=== PATIENT | male | born 1955 | race Caucasian/White ===

== ENCOUNTER → 2017-07-31 | Outpatient (CLI) | payer BC ==
[~2017-07-31] MED LIST: ASPEC325 PO; CLB200 PO; LISI20TA55 PO; LRT5 PO; PARO1TAB27 PO
[2017-07-31 17:16] LABS: ALT/SGPT 29 U/L (12-78); BLOOD UREA NITROGEN 17 mg/dl (7-18); BUN/CREATININE RATIO 17.5 (10-20); CALCIUM 9.3 mg/dl (8.5-10.1); CARBON DIOXIDE 29 mmol/L (21-32); CHLORIDE 100 mmol/L (98-107); CHOLESTEROL 143 mg/dl (0-200); CREATININE 0.96 mg/dl (0.60-1.40); GLUCOSE 94 mg/dl (70-99); POTASSIUM 3.7 mmol/L (3.5-5.1); SODIUM 135 mmol/L (136-145)
[2017-07-31 17:21] LABS: ALB/GLOB RATIO 1.2 (0.9-2); ALKALINE PHOSPHATASE 78 U/L (45-117); AST/SGOT 29 U/L (15-37); CHOLESTEROL/HDL RATIO 2.3; HDL CHOLESTEROL 63 mg/dl; LDL CHOLESTEROL CALCULATED 68 mg/dl; TRIGLYCERIDES 59 mg/dl (0-150); VERY LOW DENSITY LIPOPROT CALC 12 mg/dl
== END | disposition home or self-care (01) ==
LOC: C.LABPBG 12:27
PROVIDERS: ATTEND Internal Medicine
DX: Z00.00 Encounter for general adult medical examination without abnormal findings (principal)

== ENCOUNTER → 2017-10-09 | Outpatient (CLI) | payer BC | END | disposition home or self-care (01) | LOC: C.CPL 10:51 | DX: M20.21 Hallux rigidus, right foot (principal); R00.1 Bradycardia, unspecified ==

== ENCOUNTER → 2018-04-11 | Outpatient (CLI) | payer OTHER ==
--- NOTE | 2018-04-11 09:36 | DIAGNOSTIC IMAGING REPORT ---
CT LUNG SCREENING, LOW DOSE WITH COMPUTER-AIDED DETECTION (CAD) CLINICAL HISTORY: 63 years-old Male presenting with CURRENT DAILY SMOKER, 60+ pack-year history, asymptomatic, no history of cancer. CT DOSE (mGy.cm): The estimated cumulative dose is 105.40 mGy.cm. TECHNIQUE: Multidetector CT imaging of the chest was performed without the use of intravenous contrast. IV contrast: None. A dose lowering technique was used consistent with the principles of ALARA (as low as reasonably achievable). Additional postprocessing was performed on a separate [employer] workstation by the radiologist for computer-aided detection and 3-D volumetric segmentation of pulmonary nodules. COMPARISON: Chest x-ray from 10/28/2012. FINDINGS: Protection Specialist topogram: Unremarkable. On soft tissue windows, normal thyroid and thoracic inlet. No axillary, supraclavicular, or mediastinal lymphadenopathy. Evaluation of the shanelle limited without intravenous contrast. Normal aorta. Normal heart size. Mild three-vessel coronary artery calcification. No pericardial or pleural effusion. Upper abdomen normal. On lung windows, diffuse centrilobular groundglass nodularity within upper lobe predominance but affecting all 5 lobes. Solid 3 mm nodule in the anterior segment of the right upper lobe (series 4 image 165). Solid 4 mm triangular subpleural nodule in the lateral basal right lower lobe (series 4 image 264). Solid 7 mm triangular subpleural nodule in the right lower lobe (series 4 image 179). Several additional subpleural nodules noted in the bilateral lower lobes. Solid 4 mm nodule in the superior segment of the lingula (series 4 image 138). Solid 3 mm nodule in the left lower lobe (series 4 image 249). Many additional punctate solid nodules are noted superimposed on centrilobular groundglass nodularity. Mild bronchial wall thickening. Central airways patent. On bone windows, degenerative changes of the spine. CAD FINDINGS: Nodule 1 Category: 2 Nodule 1 Status: Baseline Nodule 1 Description: Solid Nodule 1 Lesion ID: 1 Nodule 1 Slice Number: 99 Nodule 1 Volume (mm3): 99 Nodule 1 Major [place] mm: 7.3 Nodule 1 Minor [place] mm: 5.2 Overall Lung RADS Category: 2 Lung RADS Management Recommendation: Continue annual lung cancer screening. Lung RADS Follow Up Date: 2019-04-11 Lung RADS Nodule ID: 1 IMPRESSION: 1. Continued annual lung cancer screening. 2. Diffuse centrilobular groundglass nodularity likely indicates respiratory bronchiolitis as a manifestation of smoking related lung injury. Given the diffuse multifocal punctate solid nodules, there may also be superimposed pulmonary Langerhans cell histiocytosis as another manifestation of smoking related lung injury. Electronically signed by: Bravo Fuentes M.D. 04/11/2018 9:35 AM Dictated Date/Time: 04/11/2018 9:21 AM
== END | disposition home or self-care (01) ==
LOC: C.CTS 09:00
PROVIDERS: ATTEND Internal Medicine
DX: F17.210 Nicotine dependence, cigarettes, uncomplicated (principal); R91.8 Other nonspecific abnormal finding of lung field

== ENCOUNTER 2024-05-04 23:05 | Observation (INO) ==
[2024-05-04 23:48] LABS: Basophils # (auto) 0.02 K/uL (0.00-0.20); Basophils % (auto) 0.2 %; Eosinophils # (auto) 0.01 K/uL (0.00-0.50); Eosinophils % (auto) 0.1 %; Hemoglobin 15.2 g/dl (14.0-18.0); Immature Granulocytes # (auto) 0.02 K/uL (0.01-0.20); Immature Granulocytes % (auto) 0.2 %; Lymphocytes # (auto) 1.36 K/uL (1.20-3.40); Lymphocytes % (auto) 14.7 %; Mean Corpuscular Hemoglobin 31.8 pg (25.0-34.0); Mean Corpuscular Hgb Conc 34.5 g/dL (32.0-36.0); Mean Corpuscular Volume 92.1 fL (80.0-100.0); Mean Platelet Volume 9.8 fL (9.4-12.4); Neutrophils # (auto) 6.65 K/uL (1.40-6.50); Neutrophils % (auto) 71.8 %; Platelet Count 311 K/uL (130-400); RDW Coefficient of Variation 13.2 % (11.5-14.5); RDW Standard Deviation 45.4 fL (36.4-46.3); Red Blood Count 4.78 M/uL (4.70-6.10); White Blood Count 9.26 K/ul (4.8-10.8)
--- NOTE | 2024-05-04 23:57 | Emergency Department Note ---
Impression & Plan Acute hypoxic respiratory failure, COPD (chronic obstructive pulmonary disease) ED Provider Note NAME: KARLOS ZHANG AGE: 69 SEX: M : 1955 ARRIVES VIA: Ambulance INFORMANT: Patient ED PROVIDER(S): Gustavo Chung DO CHIEF COMPLAINT: Shortness of breath HPI: Patient is a 69-year-old male with a past medical history anxiety, BPH, COPD, and hypertension for shortness of breath which has been going on since Saturday. He admits to a cough, congestion, runny nose. Denies any headache or change in vision. No chest pain but shortness of breath significant worse with movement. Brought in by EMS. Additional history obtained from present at bedside who notes that this has been getting worse. He notes he is still smoking. He was given neb treatments but no steroids. No treatments did help out. He was 87% on room air. ADDITIONAL HISTORY OBTAINED: Per HPI Chronic Medical/Social Conditions Affecting Care: Per HPI PAST MEDICAL HISTORY:See Below PAST SURGICAL HISTORY:See Below FAMILY HISTORY:See Below SOCIAL HISTORY:See Below HOME MEDICATIONS:See Below ALLERGIES:See Below VITALS:See Below PHYSICAL EXAMINATION: GENERAL: Sitting up in chair, slightly ill-appearing, disheveled EYE EXAM: normal conjunctiva. OROPHARYNX: no exudate, no erythema, lips, buccal mucosa, and tongue normal and mucous membranes are moist NECK: supple, no nuchal rigidity, no adenopathy, non-tender LUNGS: Diffuse wheezing bilaterally. Normal chest wall mechanics HEART: no murmurs, S1 normal and S2 normal ABDOMEN: abdomen soft, non-tender, normo-active bowel sounds, no masses, no rebound or guarding. UPPER EXTREMITIES: upper extremities are grossly normal. LOWER EXTREMITIES: No pitting edema. Calves are equal bilateral NEURO EXAM: Normal sensorium, cranial nerves II-XII grossly intact, normal speech, no gross weakness of arms, no gross weakness of legs. MEDICAL DECISION MAKING: Patient is a 69-year-old male who is a smoker with past medical history of hyperlipidemia, anxiety who presents ER for shortness of breath brought in by EMS. He was found to be hypoxic. Placed on 2 L nasal cannula. Given our neb treatment. He was also given DuoNebs as well as steroids. Labs show no significant leukocytosis or anemia. INR unremarkable. BMP with mild hypokalemia 3.4. LFTs bilirubin was unremarkable. Troponin was negative. Viral panel was negative. Chest x-ray with subtle opacity over the right lower heart border. Patient was given IV antibiotics. Updated bedside and discussed with the hospitalist for further evaluation management treatment. Consults/Care Managements Discussions: Per [facility] Triage Nursing notes reviewed. Limited review of prior medical records performed Vital Signs: reviewed and remarkable for hypertension with tachycardic Differential diagnosis: Differential diagnoses includes but is not limited to pneumonia, bronchitis, COPD/Asthma exacerbation, pneumothorax, pulmonary embolism, congestive heart failure, acute coronary syndrome ER treatment provided: See below Diagnostics interpreted by me include EKG and cardiac monitoring as listed below: -Cardiac Monitoring: An order was placed for continuous cardiac monitoring. The monitor shows a rate of 95 with sinus rhythm. -ECG: Sinus tachycardia rate of 91 Normal axis No PVCs QTc 432 -Laboratory studies:Interpreted by me as stated above in MDM and shown below. Imaging studies: Xrays: As interpreted by me: Portable AP upright 1 view of the chest shows subtle infiltrate in the right cardiac border CTs show: none Procedures:none Critical Care: I have personally spent 35 minutes of critical care time in the direct management of this patient. This includes bedside care, interpretation of diagnostic studies, and testing, discussion with consultants, patient, and family members, and other required patient management activities. This 35 minutes is in excess of all separately billable procedures. Past Med/Surg History Problem List (Updated 05/05/24 @ 04:03 by Gustavo Chung DO) COPD (chronic obstructive pulmonary disease) (Acute) Acute hypoxic respiratory failure (Acute) Anticoagulation management encounter Hyperlipidemia Elevated lipoprotein(a) Hyperglycemia Hematuria External hemorrhoids Anxiety Personal history of nicotine dependence Encounter for screening for lung cancer Gets annual screening. Last done 03/2019. 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 Hx of sleep apnea resolved with surgery Hx of Goldman's palsy unsure of cause, resolved History of anxiety Hx of bronchitis Osteoarthritis History of hepatitis (~1977) inpatient for 22 days, treated, unsure of type History of depression History of acute sinusitis Surgical History Hx of right inguinal hernia repair (~1989) History of colonoscopy History of total hip replacement resurfaced, rt H/O sinus surgery (03/11/09) with Uvalectomy H/O inguinal hernia repair (~2022) lt H/O knee surgery x3 lt- x 1 rt- x 2, right knee replaced Family History Mother History of permanent cardiac pacemaker placement Hypertension Pacemaker Thyroid cancer Father Thalassemia Denies family history of Ovarian cancer Prostate cancer Myocardial infarction Breast cancer Colorectal cancer Social History Smoking Status: Current every day smoker Tobacco Type: Cigarettes packs per day: 2; Cigarettes Per Day: 1 ppd (Advised); Second Hand Exposure: No; Do You Dip or Chew Tobacco: No; Hx Alcohol Use: Yes Alcohol type: beer Alcohol Intake Frequency Comment: averages 3-4 beer daily, weekend use is significantly more Hx Substance Use: No Preferred Language: Turkish Communication Ability: Effective Visual Impairment: No Limitations Hearing Ability: Normal Gang Supervisor Required: No Beliefs That Will Affect Care: None marital status: Current Living Situation: Spouse current occupational status: employed current occupation: [employer] How many Children do You have: 1 Feels Safe at Home: Yes Childhood Exposure to Second-Hand Smoke: No Diet: regular Diet Comment: regular caffeine: Yes during the past year weight has: remained stable Physical Activity Frequency: Daily Physical Activity Frequency Comment: regularly Seatbelt Use: always Sunscreen Use: Yes Assistive Devices: None Allergies Allergies Allergy/AdvReac Type Severity Reaction Status Date / Time No Known Drug Allergies Allergy Unknown Verified 05/05/24 01:21 Home Meds Home Medications Medication Instructions Recorded Confirmed cholecalciferol (vitamin D3) 25 25 mcg PO QAM 05/09/21 05/05/24 mcg (1,000 unit) capsule hydrochlorothiazide 12.5 mg tablet 12.5 mg PO QAM 02/24/24 05/05/24 lisinopril 40 mg tablet 40 mg PO QAM 02/24/24 05/05/24 pantoprazole 40 mg tablet,delayed 40 mg PO QAM 02/24/24 05/05/24 release paroxetine HCl 40 mg tablet 40 mg PO QAM 02/24/24 05/05/24 rosuvastatin 20 mg tablet 20 mg PO QAM 02/24/24 05/05/24 Previous Rx's Medication Instructions Recorded inhalational spacing device #1 ea 01/08/22 (Aerochamber Plus Z Stat spacer) sildenafil 50 mg tablet 50 mg PO DAILY PRN sexual activity 07/22/23 #30 tabs albuterol sulfate 90 mcg/actuation 1 puff inhalation QID PRN 01/20/24 aerosol inhaler Shortness Of Breath Or Wheezing #8.5 grams amlodipine 5 mg tablet 5 mg PO HS #90 tabs 01/20/24 budesonide-formoterol HFA 80 1 inh inhalation HS #10.2 grams 01/20/24 mcg-4.5 mcg/actuation aerosol inhaler (Symbicort) aspirin 81 mg tablet,delayed 81 mg PO DAILY #30 tabs 02/25/24 release Results & Data (ED) Vital Signs Vital Signs - 24 hr 05/04/24 23:08 05/04/24 23:11 05/04/24 23:11 Temperature 36.8 C Temperature Source Temporal Artery Scan Pulse Rate 96 H Pulse Rate [Left Finger] Respiratory Rate 28 H Respiratory Effort / Characteristics Non-Labored Spontaneous Non-Labored Spontaneous Respiratory Depth Normal Deep Respiratory Pattern Tachypnea Regular Tachypnea Blood Pressure 163/90 H Blood Pressure Mean 114 Blood Pressure Position Sitting Pulse Oximetry 96 96 Oxygen Delivery Method Nasal Cannula Nasal Cannula Nasal Cannula Oxygen Flow Rate 2 2 2 Sepsis Recent Fever Within 48 Hours No Sepsis New/Unexplained Change in Mental Status No Sepsis Action Taken by Nursing No Action Required 05/05/24 00:13 05/05/24 01:57 Temperature Temperature Source Pulse Rate 92 H Pulse Rate [Left Finger] 92 H Respiratory Rate 27 H Respiratory Effort / Characteristics Spontaneous Respiratory Depth Respiratory Pattern Blood Pressure Blood Pressure Mean Blood Pressure Position Pulse Oximetry 93 Oxygen Delivery Method Nasal Cannula Oxygen Flow Rate 4 Sepsis Recent Fever Within 48 Hours Sepsis New/Unexplained Change in Mental Status Sepsis Action Taken by Nursing Laboratory Data 05/04/24 23:25 06/10/24 23:25 Lab Results 05/04/24 Range/Units 23:25 WBC 9.26 (4.8-10.8) K/ul RBC 4.78 (4.70-6.10) M/uL Hgb 15.2 (14.0-18.0) g/dl Hct 44.0 (42.0-52.0) % MCV 92.1 (80.0-100.0) fL MCH 31.8 (25.0-34.0) pg MCHC 34.5 (32.0-36.0) g/dL RDW Std Deviation 45.4 (36.4-46.3) fL RDW Coeff of [place] 13.2 (11.5-14.5) % Plt Count 311 (130-400) K/uL MPV 9.8 (9.4-12.4) fL Immature Gran % (Auto) 0.2 % Neut % (Auto) 71.8 % Lymph % (Auto) 14.7 % [place] % (Auto) 13.0 % Eos % (Auto) 0.1 % Baso % (Auto) 0.2 % Neut # (Auto) 6.65 H (1.40-6.50) K/uL Lymph # (Auto) 1.36 (1.20-3.40) K/uL [place] # (Auto) 1.20 H (0.11-0.59) K/uL Eos # (Auto) 0.01 (0.00-0.50) K/uL Baso # (Auto) 0.02 (0.00-0.20) K/uL Immature Gran # (Auto) 0.02 (0.01-0.20) K/uL PT 10.5 (9.0-12.0) Seconds INR 1.0 (0.9-1.1) APTT 28 (21-31) Seconds PTT Ratio 1.0 Sodium 136 (136-145) mmol/L Potassium 3.4 L (3.5-5.1) mmol/L Chloride 98 (98-107) mmol/L Carbon Dioxide 27 (21-32) mmol/L Anion Gap 11 (3-11) BUN 11 (6-23) mg/dl Creatinine 0.88 (0.6-1.4) mg/dl Est Cr Clr Drug Dosing Not Reportable Est GFR ( Amer) 101.6 ml/min Est GFR (Non-Af Amer) 87.6 ml/min BUN/Creatinine Ratio 12.5 (10-20) Glucose 109 H (70-99(Fasting)) mg/dl Calcium 10.1 (8.6-10.3) mg/dl Magnesium 1.7 (1.7-2.4) mg/dl Total Bilirubin 0.5 (0.2-1.0) mg/dl AST 31 (13-39) U/L ALT 24 (7-52) U/L Alkaline Phosphatase 81 (34-104) U/L Troponin I High Sens 6.7 (0-20) pg/ml Total Protein 7.5 (6.0-8.3) gm/dl Albumin 4.6 (3.4-5.0) gm/dl Globulin 2.9 (2.5-4.0) gm/dl Albumin/Globulin Ratio 1.6 (0.9-2) Adenovirus (PCR) Not Detected (NotDetected) B. pertussis DNA (PCR) Not Detected (NotDetected) B.parapertussis DNA PCR Not Detected (NotDetected) C. pneumoniae DNA (PCR) Not Detected (NotDetected) Coronavirus OC43 (PCR) Not Detected (NotDetected) Coronavirus HKU1 (PCR) Not Detected (NotDetected) Coronavirus 229E (PCR) Not Detected (NotDetected) SARS-CoV-2 (PCR) Not Detected (NotDetected) Coronavirus NL63 (PCR) Not Detected (NotDetected) Human Metapneumovir PCR Not Detected (NotDetected) Influenza Type A (PCR) Not Detected (NotDetected) Influenza Type B (PCR) Not Detected (NotDetected) M. pneumoniae (PCR) Not Detected (NotDetected) Parainfluenza 1 (PCR) Not Detected (NotDetected) Parainfluenza 2 (PCR) Not Detected (NotDetected) Parainfluenza 3 (PCR) Not Detected (NotDetected) Parainfluenza 4 (PCR) Not Detected (NotDetected) RSV (PCR) Not Detected (NotDetected) Entero/Rhino (PCR) Not Detected (NotDetected) Administered Medications Discontinued Medications Albuterol (Albut/Ipratrop 3mg/0.5mg Neb 3 Ml Vial) 6 ml NEB NOW STA; Protocol Stop: 05/04/24 23:53 Last Admin: 05/05/24 00:15 Dose: 6 ml Documented By: [facility] Albuterol (Albuterol 0.083% Nebu Soln 3 Ml Vial) 10 mg NEB NOW STA; Protocol Stop: 05/05/24 01:11 Last Admin: 05/05/24 01:56 Dose: 10 mg Documented By: OLAF Sodium Chloride (Nss) 500 mls @ 999 mls/hr IV .Q31M ONE Stop: 05/05/24 00:22 Last Infusion: 05/05/24 01:07 Dose: Infused Documented By: [facility] Admin: 05/05/24 00:27 Dose: 999 mls/hr Documented By: KYLE Ceftriaxone Sodium (Rocephin) 2,000 mg in 50 mls @ 100 mls/hr IV NOW STA Stop: 05/05/24 00:21 Last Infusion: 05/05/24 01:07 Dose: Infused Documented By: [facility] Admin: 05/05/24 00:27 Dose: 100 mls/hr Documented By: [facility] Azithromycin 500 mg/ Dextrose 255 mls @ 127.5 mls/hr IV NOW STA Stop: 05/05/24 01:51 Last Infusion: 05/05/24 03:21 Dose: Infused Documented By: [facility] Admin: 05/05/24 01:12 Dose: 127.5 mls/hr Documented By: KYLE Methylprednisolone (Methylprednisolone 125 Mg/2 Ml Vial) 40 mg IV NOW STA Stop: 05/04/24 23:53 Last Admin: 05/05/24 00:22 Dose: 40 mg Documented By: [facility] Discharge Plan Visit Data Chief Complaint: Shortness of Breath/Dyspnea Stated Complaint: SHORTNESS OF BREATH SINCE SAT, BETTER AFTER NEB ED Provider: Gustavo Chung Discharge Problem: Acute hypoxic respiratory failure, COPD (chronic obstructive pulmonary disease) Forms Stand Alone Forms: My [facility] Prescriptions Prescriptions: No Action cholecalciferol (vitamin D3) 25 mcg (1,000 unit) capsule 25 mcg PO QAM (DME) Aerochamber Plus Z Stat Spacer See Rx Instructions .ROUTE .MEDSUPPLY Qty: 1 0RF Rx Instructions: As directed sildenafil 50 mg tablet 50 mg PO DAILY PRN (Reason: sexual activity) Qty: 30 2RF Rx Instructions: administer 30 minutes to 4 hours before activity budesonide-formoterol [Symbicort] 80-4.5 mcg/actuation HFA aerosol inhaler 1 inh inhalation HS Qty: 10.2 2RF albuterol sulfate 90 mcg/actuation HFA aerosol inhaler 1 puff INHALATION QID PRN (Reason: Shortness Of Breath Or Wheezing) Qty: 8.5 4RF amlodipine 5 mg tablet 5 mg PO HS Qty: 90 3RF aspirin 81 mg tablet,delayed release (DR/EC) 81 mg PO DAILY Qty: 30 2RF pantoprazole 40 mg tablet,delayed release (DR/EC) 40 mg PO QAM Rx Instructions: TAKE ONE TABLET BY MOUTH ONCE DAILY paroxetine HCl 40 mg tablet 40 mg PO QAM lisinopril 40 mg tablet 40 mg PO QAM rosuvastatin 20 mg tablet 20 mg PO QAM hydrochlorothiazide 12.5 mg tablet 12.5 mg PO QAM Referrals Referrals: Tom Mcmahon CRNP [Primary Care Provider] - Discharge Problem: COPD (chronic obstructive pulmonary disease) Qualifiers: Chronic bronchitis type: unspecified
[2024-05-05] MEDS: ALBUT/IPRATROP 3MG/0.5MG NEB 3 ML VIAL NEB STA (00:15)
[2024-05-05 00:16] LABS: Partial Thromboplastin Time 28 Seconds (21-31); Prothrombin Time 10.5 Seconds (9.0-12.0)
[2024-05-05] MEDS: methylPREDNISolone 125 MG/2 ML VIAL IV STA (00:22)
[2024-05-05 00:26] LABS: Adenovirus PCR Not Detected (NotDetected); Bordetella parapertussis PCR Not Detected (NotDetected); Bordetella pertussis PCR Not Detected (NotDetected); Chlamydia pneumoniae PCR Not Detected (NotDetected); Coronavirus 229E PCR Not Detected (NotDetected); Coronavirus CoV-2 (COVID19)PCR Not Detected (NotDetected); Coronavirus HKU1 PCR Not Detected (NotDetected); Coronavirus NL63 PCR Not Detected (NotDetected); Coronavirus OC43PCR Not Detected (NotDetected); Human Metapneumovirus PCR Not Detected (NotDetected); Influenza A PCR Not Detected (NotDetected); Influenza B PCR Not Detected (NotDetected); Mycoplasma pneumoniae PCR Not Detected (NotDetected); Parainfluenza Virus 1 PCR Not Detected (NotDetected); Parainfluenza Virus 2 PCR Not Detected (NotDetected); Parainfluenza Virus 3 PCR Not Detected (NotDetected); Parainfluenza Virus 4 PCR Not Detected (NotDetected); Respiratory Syncytial VirusPCR Not Detected (NotDetected); Rhinovirus/Enterovirus PCR Not Detected (NotDetected)
[2024-05-05] MEDS: SODIUM CHLORIDE 0.9% 500 ML IV ONE (00:27)
[2024-05-05] MEDS: cefTRIAXone SODIUM 2,000 MG/50 ML BAG IV STA (00:27)
[2024-05-05] MEDS: AZITHROMYCIN 500 MG in DEXTROSE 5% 250 ML IV STA (01:12)
[2024-05-05] MEDS: ALBUTEROL 0.083% NEBU SOLN 3 ML VIAL NEB STA (01:56)
[2024-05-05 01:57] LABS: Alanine Aminotransferase 24 U/L (7-52); Albumin Globulin Ratio 1.6 (0.9-2); Albumin Level 4.6 gm/dl (3.4-5.0); Alkaline Phosphatase 81 U/L (34-104); Anion Gap 11 (3-11); Aspartate Aminotransferase 31 U/L (13-39); BUN Creatinine Ratio 12.5 (10-20); Bilirubin,Total 0.5 mg/dl (0.2-1.0); Blood Urea Nitrogen 11 mg/dl (6-23); Calcium 10.1 mg/dl (8.6-10.3); Carbon Dioxide 27 mmol/L (21-32); Chloride 98 mmol/L (98-107); Est GFR (African American) 101.6 ml/min; Est GFR (Non-African American) 87.6 ml/min; Globulin 2.9 gm/dl (2.5-4.0); Glucose 109 mg/dl (70-99(Fasting)); Potassium 3.4 mmol/L (3.5-5.1); Sodium 136 mmol/L (136-145); Total Protein 7.5 gm/dl (6.0-8.3)
[2024-05-05 02:04] LABS: Troponin I High Sensitivity 6.7 pg/ml (0-20)
--- NOTE | 2024-05-05 02:47 | History & Physical Report ---
Date of Service May 05, 2024 Assessment & Plan (1) COPD exacerbation: (2) Acute hypoxic respiratory failure: (3) Current every day smoker: (4) Obstructive sleep apnea: (5) Hypertension: (6) Pulmonary nodules: Plan Acute respiratory failure with hypoxia/COPD exacerbation/tobacco use disorder/pulmonary nodules- Admit to monitored bed Received Solu-Medrol 40 mg IV, ceftriaxone 2 g IV, azithromycin 500 mg IV, and DuoNeb's x 2 from the ED Solu-Medrol 40 mg IV every 12 hours Azithromycin 500 mg IV daily Guaifenesin extended release 1200 mg p.o. twice daily Duonebs every 4 hours while awake and every 2 hours when necessary. Pulmicort Respules 0.5 mg inhaled twice daily Sputum Gram stain and culture Nasal cannula oxygen, titrate to keep pulse ox 92-94% Tobacco cessation counseling BioFire testing negative Patient has had serial CTs of the lungs in September of the last 3 years, with no change in pulmonary nodules, and will continue to follow-up in the outpatient setting for usual screening in September Electrolyte abnormalities/hypokalemia/hypomagnesemia- Potassium 3.4, replace with Klor-Con 40 mEq p.o. Magnesium 1.7, replaced with 2 g magnesium sulfate IV Repeat laboratories in a.m. Likely secondary to use of HCTZ and lisinopril Hypertension- Continue amlodipine, aspirin, HCTZ and lisinopril History of Present Illness Chief Complaint: The patient is brought to the emergency department by EMS due to progressively worsening shortness of breath, dyspnea on exertion and paroxysmal coughing over the past 48 hours. Primary Care Provider: SIENA Gallegos The patient is a 69-year-old male with a past medical history including COPD, hyperlipidemia, nicotine dependence, BPH with LUTS, hypertension and pulmonary nodules. He was brought to the emergency department by EMS after presented the above symptoms. Pulse ox upon arrival to the emergency department was 87% on room air, improved to 93% with 4 L nasal cannula. He did notice some improvement in symptoms after 2 DuoNebs, and 40 mg Solu-Medrol IV and 4 L nasal cannula oxygen. He reports that his cough is occasionally productive. He does continue to smoke about 1 pack cigarettes daily. He denies any associated fevers or chills. He denies any recent travels or sick exposures Allergies Allergy/AdvReac Type Severity Reaction Status Date / Time No Known Drug Allergies Allergy Unknown Verified 05/05/24 01:21 Home Medications Medication Instructions Recorded Confirmed Type cholecalciferol (vitamin D3) 25 25 mcg PO QAM 05/09/21 05/05/24 History mcg (1,000 unit) capsule inhalational spacing device #1 ea 01/08/22 05/05/24 Rx (Aerochamber Plus Z Stat spacer) sildenafil 50 mg tablet 50 mg PO DAILY PRN sexual activity 07/22/23 05/05/24 Rx #30 tabs albuterol sulfate 90 mcg/actuation 1 puff inhalation QID PRN 01/20/24 05/05/24 Rx aerosol inhaler Shortness Of Breath Or Wheezing #8.5 grams amlodipine 5 mg tablet 5 mg PO HS #90 tabs 01/20/24 05/05/24 Rx budesonide-formoterol HFA 80 1 inh inhalation HS #10.2 grams 01/20/24 05/05/24 Rx mcg-4.5 mcg/actuation aerosol inhaler (Symbicort) hydrochlorothiazide 12.5 mg tablet 12.5 mg PO QAM 02/24/24 05/05/24 History lisinopril 40 mg tablet 40 mg PO QAM 02/24/24 05/05/24 History pantoprazole 40 mg tablet,delayed 40 mg PO QAM 02/24/24 05/05/24 History release paroxetine HCl 40 mg tablet 40 mg PO QAM 02/24/24 05/05/24 History rosuvastatin 20 mg tablet 20 mg PO QAM 02/24/24 05/05/24 History aspirin 81 mg tablet,delayed 81 mg PO DAILY #30 tabs 02/25/24 05/05/24 Rx release Past Med/Surg History Problem List (Updated 05/05/24 @ 05:07 by Taiwo Jay MD) COPD exacerbation COPD (chronic obstructive pulmonary disease) (Acute) Acute hypoxic respiratory failure (Acute) Anticoagulation management encounter Hyperlipidemia Elevated lipoprotein(a) Hyperglycemia Hematuria External hemorrhoids Anxiety Personal history of nicotine dependence Encounter for screening for lung cancer Gets annual screening. Last done 03/2019. 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 Hx of sleep apnea resolved with surgery Hx of Goldman's palsy unsure of cause, resolved History of anxiety Hx of bronchitis Osteoarthritis History of hepatitis (~1977) inpatient for 22 days, treated, unsure of type History of depression History of acute sinusitis Surgical History Hx of right inguinal hernia repair (~1989) History of colonoscopy History of total hip replacement resurfaced, rt H/O sinus surgery (03/11/09) with Uvalectomy H/O inguinal hernia repair (~2022) lt H/O knee surgery x3 lt- x 1 rt- x 2, right knee replaced Family History Mother History of permanent cardiac pacemaker placement Hypertension Pacemaker Thyroid cancer Father Thalassemia Denies family history of Ovarian cancer Prostate cancer Myocardial infarction Breast cancer Colorectal cancer Social History Smoking Status: Current every day smoker Tobacco Type: Cigarettes packs per day: 2; Cigarettes Per Day: 1 ppd (Advised); Second Hand Exposure: No; Do You Dip or Chew Tobacco: No; Hx Alcohol Use: Yes Alcohol type: beer Alcohol Intake Frequency Comment: averages 3-4 beer daily, weekend use is significantly more Hx Substance Use: No Preferred Language: Rw[place] Communication Ability: Effective Visual Impairment: No Limitations Hearing Ability: Normal Yield Analyst Required: No Beliefs That Will Affect Care: None marital status: Current Living Situation: Spouse current occupational status: employed current occupation: [employer] How many Children do You have: 1 Feels Safe at Home: Yes Childhood Exposure to Second-Hand Smoke: No Diet: regular Diet Comment: regular caffeine: Yes during the past year weight has: remained stable Physical Activity Frequency: Daily Physical Activity Frequency Comment: regularly Seatbelt Use: always Sunscreen Use: Yes Assistive Devices: None Review of Systems Review of Systems: The patient denies chest pain, palpitations, lower extremity swelling, sore throat, fevers, chills, sweats, weight change, fatigue, nausea, vomiting, diarrhea , constipation, abdominal pain, blood in urine or stool, dysuria, urinary frequency or urgency, lightheadedness, dizziness, headache, loss of consciousness, rash, abnormal bruising or bleeding, imbalance, focal or generalized weakness, numbness or tingling in arms or legs, generalized arthralgias or myalgias, back or neck pain, or night sweats. The review of systems is otherwise negative other than for that already noted above, and at least 10 systems have been reviewed. Physical Exam Physical Exam: The patient is awake, alert and oriented 3, well developed and well nourished, normocephalic and atraumatic, lying in bed and in no acute distress. HEENT--PERRL, EOMI, mucous membranes and oropharynx normal Neck--supple. No JVD. No bruits. Thyroid normal, trachea midline, no adenopathy. Heart--normal S1 and S2. No murmurs, rubs or gallops. Lungs--decreased breath sounds throughout. No respiratory distress, no accessory muscle use. Abdomen--normal bowel sounds and soft. Nontender. Nondistended, no hernias or masses, no organomegaly. Extremities--No edema. Dermatologic--normal skin turgor, normal color, no abnormal lymph nodes, no rash. Neurologic--cranial nerves II through XII grossly intact. Rheumatologic--normal range of motion. Psychiatric--normal affect. Results & Data Results & Data Vital Signs (Past 12 Hours) Vital Signs Temp Pulse Pulse Resp BP Pulse Ox O2 Del Method 05/05/24 01:57 92 H 27 H 93 Nasal Cannula 05/05/24 00:13 92 H 05/04/24 23:11 96 Nasal Cannula 05/04/24 23:11 Nasal Cannula 05/04/24 23:08 36.8 C 96 H 28 H 163/90 H 96 Nasal Cannula O2 Flow Rate 05/05/24 01:57 4 05/05/24 00:13 05/04/24 23:11 2 05/04/24 23:11 2 05/04/24 23:08 2 Laboratory Results Laboratory Results WBC 9.26 K/ul (4.8-10.8) 05/04/24 23:25 RBC 4.78 M/uL (4.70-6.10) 05/04/24 23:25 Hgb 15.2 g/dl (14.0-18.0) 05/04/24:25 Hct 44.0 % (42.0-52.0) 05/04/24: MCV 92.1 fL (80.0-100.0) 05/04/24: MCH 31.8 pg (25.0-34.0) 05/04/24: MCHC 34.5 g/dL (32.0-36.0) 05/04/24: RDW Std Deviation 45.4 fL (36.4-46.3) 05/04/24: RDW Coeff of Yaquelin 13.2 % (11.5-14.5) 05/04/24: Plt Count 311 K/uL (130-400) 05/04/24: MPV 9.8 fL (9.4-12.4) 05/04/24:25 Immature Gran % (Auto) 0.2 % 05/04/24 23: Neut % (Auto) 71.8 % 05/04/24 23: Lymph % (Auto) 14.7 % 05/04/24 23:25 [place] % (Auto) 13.0 % 05/04/24 23:25 Eos % (Auto) 0.1 % 05/04/24: Baso % (Auto) 0.2 % 05/04/24:25 Neut # (Auto) 6.65 K/uL (1.40-6.50) H 05/04/24 23:25 Lymph # (Auto) 1.36 K/uL (1.20-3.40) 05/04/24 23:25 [place] # (Auto) 1.20 K/uL (0.11-0.59) H 05/04/24 23:25 Eos # (Auto) 0.01 K/uL (0.00-0.50) 05/04/24:25 Baso # (Auto) 0.02 K/uL (0.00-0.20) 05/04/24 23:25 Immature Gran # (Auto) 0.02 K/uL (0.01-0.20) 05/04/24 23:25 PT 10.5 Seconds (9.0-12.0) 05/04/24 23:25 INR 1.0 (0.9-1.1) 05/04/24 23:25 APTT 28 Seconds (21-31) 05/04/24 23:25 PTT Ratio 1.0 05/04/24 23:25 Sodium 136 mmol/L (136-145) 05/04/24 23:25 Potassium 3.4 mmol/L (3.5-5.1) L 05/04/24 23:25 Chloride 98 mmol/L (98-107) 05/04/24 23:25 Carbon Dioxide 27 mmol/L (21-32) 05/04/24 23:25 Anion Gap 11 (3-11) 05/04/24 23:25 BUN 11 mg/dl (6-23) 05/04/24 23:25 Creatinine 0.88 mg/dl (0.6-1.4) 05/04/24 23:25 Est Cr Clr Drug Dosing Not Reportable 05/04/24 23:25 Est GFR ( Amer) 101.6 ml/min 05/04/24 23:25 Est GFR (Non-Af Amer) 87.6 ml/min 05/04/24 23:25 BUN/Creatinine Ratio 12.5 (10-20) 05/04/24 23:25 Glucose 109 mg/dl (70-99(Fasting)) H 05/04/24 23:25 Calcium 10.1 mg/dl (8.6-10.3) 05/04/24 23:25 Magnesium 1.7 mg/dl (1.7-2.4) 05/04/24 23:25 Total Bilirubin 0.5 mg/dl (0.2-1.0) 05/04/24 23:25 AST 31 U/L (13-39) 05/04/24 23:25 ALT 24 U/L (7-52) 05/04/24 23:25 Alkaline Phosphatase 81 U/L (34-104) 05/04/24 23:25 Troponin I High Sens 6.7 pg/ml (0-20) 05/04/24 23:25 Total Protein 7.5 gm/dl (6.0-8.3) 05/04/24 23:25 Albumin 4.6 gm/dl (3.4-5.0) 05/04/24 23:25 Globulin 2.9 gm/dl (2.5-4.0) 05/04/24 23:25 Albumin/Globulin Ratio 1.6 (0.9-2) 05/04/24 23:25 Adenovirus (PCR) Not Detected (NotDetected) 05/04/24 23:25 B. pertussis DNA (PCR) Not Detected (NotDetected) 05/04/24 23:25 B.parapertussis DNA PCR Not Detected (NotDetected) 05/04/24 23:25 C. pneumoniae DNA (PCR) Not Detected (NotDetected) 05/04/24 23:25 Coronavirus OC43 (PCR) Not Detected (NotDetected) 05/04/24 23:25 Coronavirus HKU1 (PCR) Not Detected (NotDetected) 05/04/24 23:25 Coronavirus 229E (PCR) Not Detected (NotDetected) 05/04/24 23:25 SARS-CoV-2 (PCR) Not Detected (NotDetected) 05/04/24 23:25 Coronavirus NL63 (PCR) Not Detected (NotDetected) 05/04/24 23:25 Human Metapneumovir PCR Not Detected (NotDetected) 05/04/24 23:25 Influenza Type A (PCR) Not Detected (NotDetected) 05/04/24 23:25 Influenza Type B (PCR) Not Detected (NotDetected) 05/04/24 23:25 M. pneumoniae (PCR) Not Detected (NotDetected) 05/04/24 23:25 Parainfluenza 1 (PCR) Not Detected (NotDetected) 05/04/24 23:25 Parainfluenza 2 (PCR) Not Detected (NotDetected) 05/04/24 23:25 Parainfluenza 3 (PCR) Not Detected (NotDetected) 05/04/24 23:25 Parainfluenza 4 (PCR) Not Detected (NotDetected) 05/04/24 23:25 RSV (PCR) Not Detected (NotDetected) 05/04/24 23:25 Entero/Rhino (PCR) Not Detected (NotDetected) 05/04/24 23:25 Code Status & VTE Plan Code Status Full code VTE Prophylaxis Plan VTE Prophylaxis will be ordered: Yes PG Care Time/CCT Total # of Minutes Spent Total Time Spent with Patient: Total time spent is greater than 50% in coordination of care (as documented) at patient's floor/unit and/or counseling patient: Coding Level of Care Code 77781 INT INP/OBS CARE 2/55MIN Diagnoses COPD exacerbation J44.1 Acute hypoxic respiratory failure J96.01 Current every day smoker F17.200 Obstructive sleep apnea G47.33 Essential hypertension I10 Hypertension type: essential hypertension Pulmonary nodules R91.8 (5) Hypertension Hypertension type: essential hypertension Qualified Code(s): I10 - Essential (primary) hypertension
[2024-05-05 02:55] LABS: Magnesium 1.7 mg/dl (1.7-2.4)
[2024-05-05] MEDS: POTASSIUM CHLORIDE CRTAB 20 MEQ TABCR PO STA (04:12)
[2024-05-05] MEDS: guaiFENesin 600 MG TABCR PO STA (04:14)
[2024-05-05] MEDS ORDERED: ACETAMINOPHEN 325 MG TAB PO PRN (05:13)
[2024-05-05] MEDS ORDERED: methylPREDNISolone 10 mg/mL (For Ped Dose < 7mg) IV SCH (05:13)
[2024-05-05] MEDS ORDERED: ALBUT/IPRATROP 3MG/0.5MG NEB 3 ML VIAL NEB PRN (05:48)
[2024-05-05] MEDS: MAGNESIUM SULFATE / D5W 1 GM/100 ML BAG IV SCH (06:23)
[2024-05-05] MEDS: ALBUT/IPRATROP 3MG/0.5MG NEB 3 ML VIAL NEB SCH (06:23)
[2024-05-05] MEDS: BUDESONIDE 0.5 MG/2 ML VIAL (PULMICORT) NEB SCH (07:03)
--- NOTE | 2024-05-05 07:45 | XRay Report ---
XR chest 1V portable HISTORY: 69 years-old Male shortness of breath acute shortness of breath COMPARISON: 02/24/2024 TECHNIQUE: AP view of the chest FINDINGS: The lungs are clear. Heart size is within normal limits. There is no pneumothorax or pleural effusion . The bones appear grossly intact. IMPRESSION: No acute process. ACT 112: Negative or not required by law. The above report was generated using voice recognition software. It may contain grammatical, syntax o r spelling errors. Electronically signed by: Owen Garsia M.D. 05/05/2024 7:44 AM
[2024-05-05] MEDS: lisinopril 40 MG TAB PO SCH (09:26)
[2024-05-05] MEDS: ASPIRIN 81 MG ECTAB PO SCH (09:26)
[2024-05-05] MEDS: guaiFENesin 600 MG TABCR PO SCH (09:26)
[2024-05-05] MEDS: hydroCHLOROthiazide 25 MG TAB PO SCH (09:26)
[2024-05-05] MEDS: CHOLECALCIFEROL 25 MCG (1000 UNITS) TAB PO SCH (09:26)
[2024-05-05] MEDS: PANTOprazole 40 MG TAB PO SCH (09:27)
[2024-05-05] MEDS: PARoxetine HCL 20 MG TAB PO SCH (09:27)
[2024-05-05] MEDS: ROSUVASTATIN CALCIUM 20 MG TAB PO SCH (09:27)
--- OUTSIDE RECORDS SUMMARY | 2024-05-05 11:03 | External Medical Summary | Continuity of Care Document ---
Author Name Unknown Organization [id number] Address [address] [place] [id number] Care Team Providers Care Warper Tender Name Role Phone Tom Mcmahon Primary Care Physician [phone] Encounter [facility] [id number] Date(s): 04/22/24 - 04/22/24 [facility] [address] [place] [id number] Medicine [address] [place] [id number] Encounter Diagnosis S/P foot surgery, left(Discharge Diagnosis) - 04/22/24 Discharge Disposition: Home or Self Care Attending Physician: GABBIE Gill Christina L Referring Physician: SIENA Mcmahon Matthew J Allergies, Adverse Reactions, Alerts No Known Medication Allergies Assessment and Plan Extracted from: Title:Follow Up Visit Author:GABBIE Gill, Miroslava Hyde Date:04/22/24 1.S/P foot surgery, left Patient to continue activities of daily living to tolerancewith supported wideshoes half size largerworn today post op xrays reviewedtoday showing normal postop position of the left foot Patient no longer in need of Band-Aids incisions well-healed can continue vitamin E ointment over incision patient to wear supportive shoe gear that is wide soft and about half size larger no calf pain noted and discussed signs of a DVT,continue aspirin twice per day per Coumadin clinic recommendationsmay discontinue aspirin at this point since patient is transition to regular shoe gear continue Tylenol/ibuprofen for pain,patient has not been taking narcotic medication no need for narcotic medication refill follow upon May 27 at 2:30 PMfor postop evaluation and left foot x-rays Medications Albuterol (Eqv-ProAir HFA) 90 mcg/inh inhalation aerosol 1 PUFF INHALED FOUR TIMES DAILY NEEDED FOR SHORTNESS OF BREATH OR WHEEZING Start Date: 02/11/24 Status: Ordered amLODIPine 5 mg oral tablet TAKE 1 TABLET BY MOUTH EVERY DAY AT BEDTIME Start Date: 02/11/24 Status: Ordered budesonide-formoterol 80 mcg-4.5 mcg/inh inhalation aerosol with adapter Start: 02/11/24 2:18:00 PM EDT, 2 puff, inhaled, bid Start Date: 02/11/24 Status: Ordered hydroCHLOROthiazide 12.5 mg oral tablet TAKE 1 TABLET BY MOUTH EVERY DAY Start Date: 02/11/24 Status: Ordered lisinopril 40 mg oral tablet TAKE 1 TABLET BY MOUTH EVERY DAY Start Date: 02/24/24 Status: Ordered pantoprazole 40 mg oral delayed release tablet TAKE 1 TABLET BY MOUTH EVERY DAY Start Date: 02/11/24 Status: Ordered PARoxetine 40 mg oral tablet TAKE 1 TABLET BY MOUTH EVERY DAY Start Date: 02/11/24 Status: Ordered rosuvastatin 20 mg oral tablet TAKE 1 TABLET BY MOUTH DAILY. Start Date: 02/24/24 Status: Ordered Vitamin D3 Start: 02/24/24 11:24:00 AM EDT Start Date: 02/24/24 Status: Ordered Mental Status 04/22/24 Barriers to Learning one year None evide nt Mandatory Health Literacy Documentation Yes Health Literacy Communication Barriers N ever Primary Language Guinean Problem List Condition Confirmation Course Effective Dates Status Health St atus Informant Left foot pain Confirmed Active S/P foot surgery, left Confirmed Active Metatarsalgia, left foot Confirmed Active Tobacco user Confirmed Active Hallux rigidus, left foot Confirmed Active Diagnosis Diagnosis Type Effective Dates Health Status Cl inical Service Informant S/P foot surgery, left Discharge Diagnosis 04/22/24 Non-Specified Social History Social History Type Response Smoking Status Current every day he live smoker Sex Male Ortho Outpt Note * GABBIE Gill Christina L: PERFORM Event Display: Ortho Outpt Note Authored Date: [id number] Chief Complaint left foot s/p Primary Care Provider SIENA Mcmahon Matthew J Subjective Patient is a very pleasant 69-year-old male presenting today status post left foot first metatarsalphalangeal joint fusion with fixation and second metatarsal shortening osteotomy with fixation. Postop visit #4 Postop day #42, 6 weeks post op Date of surgery March 11, 2024. No acute concerns noted todaypatient indicated to me he did return to his supportive wide shoe gearabout a week agoas he was having no pain or discomforthe continues to have no pain with ambulationhe has no current concernsoverall patient is feeling wellhe has no pain consistent with a DVT, patient is ambulating in supportive shoeswithout discomfort Review of Systems COPD arthritis of the knees Objective Physical Exam Problem focused left foot: Dorsalis pedis pulse palpable 2 out of 4, posterior tibial pulse palpable 2 out of 4,capillary refill time less than 3 seconds, skin turgor good to all digits of the left foot pedal hair is present. Gross sensation intact all digits of the left foot Incision present over the left first metatarsal phalangeal joint is well- healedthere is no dehiscence there is very little postop swellingno erythema no cellulitis,range of motion atfirst MPJnot checked due to fusion,range of motion at distal interphalangeal joint within normal limits without pain Incision present over left second metatarsal phalangeal joint well-healed, no inflammation, no cellulitis, no drainage, no dehiscence, very little postop swelling, range of motion of second MPJ without discomfort, toe in anatomical position. Calfsupple there is no pain no swelling no erythema no signs consistent with a DVTpatient is taking aspirin per Coumadin clinic recommendations,but may discontinue due to transitioning back to supportive shoe gear X-ray dictation 3 views leftfoot:3 views of the left foot show stable and intact fixation, stable postopappearance of the left foot following first metatarsal phalangeal joint fusion and secondmetatarsal shortening osteotomy. All fixation is stablenormal postop position of the left foot.I personally performed the interpretation of 3 views of the left foot. Assessment/Plan 1.S/P foot surgery, left Patient to continue activities of daily living to tolerancewith supported wideshoes half size largerworn today post op xrays reviewedtoday showing normal postop position of the left foot Patient no longer in need of Band-Aids incisions well-healed can continue vitamin E ointment over incision patient to wear supportive shoe gear that is wide soft and about half size larger no calf pain noted and discussed signs of a DVT,continue aspirin twice per day per Coumadin clinic recommendationsmay discontinue aspirin at this point since patient is transition to regular shoegear continue Tylenol/ibuprofen for pain,patient has not been taking narcotic medication no need for narcotic medication refill follow upon May 27 at 2:30 PMfor postop evaluation and left foot x-rays Electronic Signature on File Electronically Reviewed/Signed by: Chacha Gill DPM Author Signature Dt/Tm:04/22/2024 01:22 PM Division of Sports Medicine CLR Patient Care team information Care Team Personnel Name: Nida Flores Position: HIS Supervisor_P Member Role: HIS Lifetime Name: SIENA Mcmahon Matthew J Position: Referring Member Role: Primary Care Provider Address: Address: [address] [place] [address]
--- NOTE | 2024-05-05 12:32 | Electrocardiogram Report ---
Test Reason : Blood Pressure : / mmHG Vent. Rate : 091 BPM Atrial Rate : 091 BPM P-R Int : 160 ms QRS Dur : 074 ms QT Int : 352 ms P-R-T Axes : 069 -40 050 degrees QTc Int : 432 ms Sinus rhythm with Premature atrial complexes Left axis deviation Abnormal ECG When compared with ECG of 30-SEP-2020 00:09, Premature atrial complexes are now Present Confirmed by Marv Javier ([id number]) on 05/05/2024 12:32:27 PM Referred By: REFERRED SELF Confirmed By:Fabrizio Javier
[2024-05-05] MEDS: methylPREDNISolone 40 MG in SYRINGE 0 ML IV SCH (13:13)
--- NOTE | 2024-05-05 13:18 | Hospitalist Progress Note ---
Date of Service May 05, 2024 Assessment & Plan (1) COPD exacerbation: (2) Acute hypoxic respiratory failure: (3) Obstructive sleep apnea: (4) Hypertension: (5) Pulmonary nodules: Plan Patient is a 69 yo M w/ a PMHx of COPD, hyperlipidemia, nicotine dependence, BPH w/ LUTS, HTN, and pulmonary nodules, among other conditions. 1) COPD exacerbation/acute respiratory failure w/ hypoxia - Received Solu-Medrol 40 mg IV, ceftriaxone 2 g IV, azithromycin 500 mg IV, and DuoNeb's x 2 from the ED - Solu-Medrol 40 mg IV every 12 hours; Azithromycin 500 mg IV daily; Guaifenesin extended release 1200 mg p.o. twice daily - Duonebs every 4 hours while awake and every 2 hours when necessary. - Pulmicort Respules 0.5 mg inhaled twice daily - BioFire testing negative; Sputum Gram stain and culture still pending - CXR negative for any acute processes - Nasal cannula oxygen currently at 1.5 L/min, titrate to maintain O2 Sat, 88- 92% 2) Tobacco use disorder - Tobacco cessation counseling - patient is a 40+ 1-pack (1.25 packs maybe) a day smoker - has tried quitting before w/ Chantix, Wellbutrin, and nicotine patches all at separate times and nothing has ever worked - pt appears interested in quitting today, talked to him about starting a patch today --> ordered 21 mg nicotine patch 3) Pulmonary nodules - Patient has had serial CTs of the lungs in September of the last 3 years, with no change in pulmonary nodules, and will continue to follow-up in the outpatient setting for usual screening in September - continue to follow w/ PCP and get CT chest imaging as needed 4) mild hypokalemia/mild hypomagnesemia #resolved - Potassium, 3.5 <-- 3.4 - Magnesium, 2.0 <-- 1.7 Repeat AM labs Likely secondary to use of HCTZ and lisinopril 5) Hypertension - Continue amlodipine, aspirin, HCTZ and lisinopril Admission and Anticipated Discharge Date Admission Date: May 05, 2024 Supervising Physician Co-Signing Physician Notes ATTESTATION I also saw the patient and confirmed ramos portions of the history and exam. I agree with the impression and plan in the resident documentation, and as summarized below. Upon my late afternoon exam, the patient is seated in the emergency department bed awaiting a room. He tells me that he feels much better than when he came in. He is breathing much easier. He states it was very difficult to take a deep inspiration or catch his breath when he presented; now he is breathing fairly easily. His oxygen is down to 1.5 L/min. EXAM 154/88, 80, 22, 36.7, 91% on nasal cannula at 1.5 L/min He is alert and oriented. No distress appreciated. Heart regular rate and rhythm Lungs with prolonged expiratory phase, end expiratory wheeze, but good air exchange. DATA Labs ED labs from 05/04/2024 reviewed Imaging Chest x-ray taken upon admission shows no acute process. Micro Sputum culture collected this morning at 7 AM is pending. IMPRESSION & PLAN Acute respiratory failure with hypoxia COPD exacerbation Nicotine dependence Clinically improved Continue IV Solu-Medrol, azithromycin, and DuoNebs Discussed smoking sensation, elects nicotine patch Wean oxygen and increase ambulation Reassess in a.m.; potentially discharge if continues to improve Additional per resident documentation Review of Systems Constitutional: + fatigue; no fever and no chills Ear, Nose, Mouth, Throat: + nasal congestion and + sinus pain/pres sure; no dizziness and no sore throat Respiratory: + cough, + chest congestion, + dyspnea a nd + wheezing Cardiovascular: no chest pain, no palpitations and no lightheadedness Gastrointestinal: + constipation; no abdominal pain, no he artburn, no nausea and no vomiting Genitourinary: no dysuria, no urinary frequency or no urinary incontinence Integumentary: no rash and no lesions Neurologic: + headache(s); no unsteadiness, no tingl ing and no numbness Physical Exam Constitutional: WD/WN, vitals as above average body habitus, cooperative and comfortable Respiratory: + labored breathing, + uses accessory mu scles, + cough and able to speak in complete sentences Auscultation: + wheezes; no crackles Cardiovascular: RRR, no murmur, no edema Extremities: normal capillary refill; no calf tenderness and no pedal edema Gastrointestinal (Abdomen): Inspection/Auscultation: abdomen normal to inspection and normal bowel sounds Percussion/Palpation: abdomen soft; abdomen nontender Psychiatric: A+Ox3, euthymic affect Results & Data Results & Data Vital Signs (Past 12 Hours) Vital Signs Temp Pulse Pulse Resp BP Pulse Ox Pulse Ox 05/05/24 11:47 88 20 163/85 H 94 05/05/24 11:30 81 20 94 05/05/24 09:34 05/05/24 09:22 86 18 148/78 H 94 05/05/24 07:37 97 H 05/05/24 07:05 98 H 28 H 96 05/05/24 06:33 87 20 151/91 H 98 05/05/24 06:04 96 05/05/24 06:03 96 05/05/24 05:57 05/05/24 05:57 37.2 C 76 18 149/82 H 99 05/05/24 01:57 92 H 27 H 93 O2 Del Method O2 Del Method O2 Flow Rate O2 Flow Rate 05/05/24 11:47 Nasal Cannula 2 05/05/24 11:30 Nasal Cannula 2 05/05/24 09:34 Nasal Cannula 2 05/05/24 09:22 Nasal Cannula 2 05/05/24 07:37 05/05/24 07:05 Nasal Cannula 3 05/05/24 06:33 Nasal Cannula 2 05/05/24 06:04 Nasal Cannula 2 05/05/24 06:03 Nasal Cannula 2 05/05/24 05:57 Nasal Cannula 2 05/05/24 05:57 Nasal Cannula 2 05/05/24 01:57 Nasal Cannula 4 (4) Hypertension Hypertension type: essential hypertension Qualified Code(s): I10 - Essential (primary) hypertension
[2024-05-05] MEDS ORDERED: NICOTINE 7 MG/24 HR TDSY TD SCH (14:15)
[2024-05-05] MEDS: NICOTINE 21 MG/24 HR TDSY TD SCH (15:39)
[2024-05-05] MEDS: bisacodyL 5 MG TABEC PO ONE (15:39)
[2024-05-05] MEDS: ENOXAPARIN INJ 40 MG/0.4 ML SYR SQ SCH (15:39)
[2024-05-05] MEDS: Patient's HEIGHT &/or WEIGHT Needed SCH (15:44)
[2024-05-05 16:26] LABS: BUN Creatinine Ratio 13.5 (10-20); Calcium 9.9 mg/dl (8.6-10.3); Creatinine Clr Calc Pharmacy 88.5 ml/min; Est GFR (African American) 101.1 ml/min; Est GFR (Non-African American) 87.2 ml/min; Potassium 3.5 mmol/L (3.5-5.1)
[2024-05-05] MEDS: FLUTICASONE/VILANTEROL 100/25MCG 14 PUFFS/INHALER INH SCH (20:48)
[2024-05-05] MEDS: amLODIPine BESYLATE 5 MG TAB PO SCH (20:48)
[2024-05-05] MEDS: AZITHROMYCIN 500 MG in DEXTROSE 5% 250 ML IV SCH (22:04)
[2024-05-06 06:54] LABS: Basophils # (auto) 0.01 K/uL (0.00-0.20); Basophils % (auto) 0.1 %; Hematocrit (blood only) 38.9 % (42.0-52.0); Hemoglobin 13.9 g/dl (14.0-18.0); Immature Granulocytes # (auto) 0.03 K/uL (0.01-0.20); Immature Granulocytes % (auto) 0.3 %; Lymphocytes # (auto) 0.78 K/uL (1.20-3.40); Lymphocytes % (auto) 6.9 %; Mean Corpuscular Hemoglobin 32.3 pg (25.0-34.0); Mean Corpuscular Hgb Conc 35.7 g/dL (32.0-36.0); Mean Corpuscular Volume 90.3 fL (80.0-100.0); Mean Platelet Volume 9.9 fL (9.4-12.4); Monocytes # (auto) 0.57 K/uL (0.11-0.59); Monocytes % (auto) 5.1 %; Neutrophils # (auto) 9.84 K/uL (1.40-6.50); Neutrophils % (auto) 87.6 %; Platelet Count 333 K/uL (130-400); RDW Coefficient of Variation 13.2 % (11.5-14.5); RDW Standard Deviation 43.9 fL (36.4-46.3); Red Blood Count 4.31 M/uL (4.70-6.10); White Blood Count 11.23 K/ul (4.8-10.8)
--- NOTE | 2024-05-06 07:06 | Discharge Summary ---
Date of Service May 06, 2024 Admission HPI Per Admitting Provider The patient is a 69-year-old male with a past medical history including COPD, hyperlipidemia, nicotine dependence, BPH with LUTS, hypertension and pulmonary nodules. He was brought to the emergency department by EMS after presented the above symptoms. Pulse ox upon arrival to the emergency department was 87% on room air, improved to 93% with 4 L nasal cannula. He did notice some improvement in symptoms after 2 DuoNebs, and 40 mg Solu-Medrol IV and 4 L nasal cannula oxygen. He reports that his cough is occasionally productive. He does continue to smoke about 1 pack cigarettes daily. He denies any associated fevers or chills. He denies any recent travels or sick exposures. Admission Exam Per Admitting Provider The patient is awake, alert and oriented 3, well developed and well nourished, normocephalic and atraumatic, lying in bed and in no acute distress. HEENT--PERRL, EOMI, mucous membranes and oropharynx normal Neck--supple. No JVD. No bruits. Thyroid normal, trachea midline, no adenopathy. Heart--normal S1 and S2. No murmurs, rubs or gallops. Lungs--decreased breath sounds throughout. No respiratory distress, no acc essory muscle use. Abdomen--normal bowel sounds and soft. Nontender. Nondistended, no hernias or masses, no organomegaly. Extremities--No edema. Dermatologic--normal skin turgor, normal color, no abnormal lymph nodes, no rash. Neurologic--cranial nerves II through XII grossly intact. Rheumatologic--normal range of motion. Psychiatric--normal affect. Principal Diagnosis COPD exacerbation Discharge Exam Constitutional WD/WN, vitals as above average body habitus, cooperative and comfortable Respiratory + cough and able to speak in complete sentences; no labored breathing Auscultation: + wheezes; no crackles Cardiovascular RRR, no murmur, no edema Extremities: normal capillary refill; no calf tenderness and no pedal edema Gastrointestinal (Abdomen) Inspection/Auscultation: abdomen normal to inspection and normal bowel sounds Percussion/Palpation: abdomen soft; abdomen nontender Psychiatric A+Ox3, euthymic affect Discharge Data Allergies Allergy/AdvReac Type Severity Reaction Status Date / Time No Known Drug Allergies Allergy Unknown Verified 05/05/24 01:21 Consultations 05/05/24 00:55 ED Decision to Admit Stat Hospital Course (1) COPD exacerbation: (2) Acute hypoxic respiratory failure: (3) Obstructive sleep apnea: (4) Hypertension: (5) Pulmonary nodules: Plan Patient is a 69 yo M w/ a PMHx of COPD, hyperlipidemia, nicotine dependence, BPH w/ LUTS, HTN, and pulmonary nodules, among other conditions. 1) COPD exacerbation/acute respiratory failure w/ hypoxia - Received Solu-Medrol 40 mg IV, ceftriaxone 2 g IV, azithromycin 500 mg IV, and DuoNeb's x 2 from the ED - Solu-Medrol 40 mg IV every 12 hours; Azithromycin 500 mg IV daily; Guaifenesin extended release 1200 mg, PO, BID during hospital stay - Duonebs every 4 hours, JACLYN while awake and 2 hrs, PRN; Pulmicort Respules 0.5 mg inhaled twice daily all during hospital stay - BioFire testing negative; Sputum Gram stain and culture still pending - CXR negative for any acute processes - Weaned off of O2, O2 Sat, 93% on room air - Patient discharge on: Prednisone 40 mg daily for 3 days followed by prednisone, 20 mg, daily, for 3 days Symbicort, 2 inhalations, daily, regularly. Spiriva (tiotropium bromide), 1 inhalation, daily, regularly Azithromycin, 500 mg, PO, daily, for 3 more days. 2) Tobacco use disorder - Tobacco cessation counseling - patient is a 40+ 1-pack (1.25 packs maybe) a day smoker - has tried quitting before w/ Chantix, Wellbutrin, and nicotine patches all at separate times and nothing has ever worked - pt appears interested in quitting today, talked to him about starting a patch today --> ordered 21 mg nicotine patch, daily - Patient discharged on: 1- 21 mg nicotine patch, transdermal, daily, for 28 days (Will F/U w/ PCP to determine tapering schedule to quit) 3) Pulmonary nodules - Patient has had serial CTs of the lungs in September of the last 3 years, with no change in pulmonary nodules, and will continue to follow-up in the outpatient setting for usual screening in September - continue to follow w/ PCP and get CT chest imaging as needed 4) mild hypokalemia/mild hypomagnesemia #resolved - Potassium, 3.5 <-- 3.4 - Magnesium, 2.0 <-- 1.7 Repeat AM labs Likely secondary to use of HCTZ and lisinopril 5) Hypertension - Continue amlodipine, aspirin, HCTZ and lisinopril Total Time Total Time Spent Total Time Spent (In Minutes): see attending attestation Discharge Plan Discharge Items Patient Disposition: Home - Self-Care Reason For Visit: COPD EXACERBATION, HYPOXIA Discharge Diagnosis: COPD exacerbation Activity: Resume your previous activity Non-emergency contact: Primary Care Provider and Fly Setter Call non-emergency contact if: you have any medication questions, your symptoms worsen and your temperature is above 101.5 Follow-up/Referrals: Tom Mcmahon CRNP [Primary Care Provider] - 05/21/24 10:20 am Diet: Regular Addtl Attending Provider Instructions: You were admitted to the hospital for COPD exacerbation. You were treated with DuoNebs (albuterol and ipratropium), methylpredinsolone, azithromycin, budesonide, and O2 per nasal cannula, along with your home medications. A discharge summary will be sent to your primary care physician to ensure continuity of care. Please bring this discharge summary with you to your next office appointment so that your provider can review it at that time. Follow-up appointments: We have requested a follow-up appointment with your primary care physician and with a flat cutter within one week of discharge. Please call their office if you do not hear from them. Keep all your follow-up appointments as already scheduled. If you cannot make an appointment, notify your provider. Medications: Your medication list has been reviewed and reconciled upon discharge to ensure accuracy and continuity of care. An updated list of all your medications is included with your hospital discharge paperwork. Please review this list closely, and make note of any changes. We sent a new medication called transdermal nicotine patches to your pharmacy. Apply one transdermal nicotine patch (21 mg/patch), daily, for 28 days. Prescribed for 30 days, after which time you'll need refill from your PCP, titrating down on some schedule to 14 mg, then to 7 mg patches. Your PCP can develop a tapered schedule. We sent a new medication called prednisone to your pharmacy. Take prednisone, 20 mg/1 tablet, twice a day, for 3 days, followed by prednisone, 20 mg, daily, for 3 days. We sent a new medication called Spiriva w/ Handihaler (tiotropium bromide) to your pharmacy. Take Spiriva (tiotropium bromide), 1 inhalation, daily, regularly. Prescribed for 30 days, after which time you'll need refill from your PCP. Continue taking your current medication called Symbicort but increase its dosage. Take Symbicort, one inhalation, twice a day, regularly. Take your medications as instructed; do not skip a dose of your medicines. Make sure all of your doctors know every medicine you are taking (including [id number] medicines, vitamins, and supplements). Call your primary care provider before taking any new medicines (including oszj-gor-mgykyhr medicines, vitamins, and supplements), because some of these may interact with your current medications, or may make your symptoms worse. Tell your primary care provider if you cannot afford your medications. CONTACT YOUR PRIMARY CARE PROVIDER if you experience any of the following: fever, chills, chest pain shortness of breath, wheezing, continued productive cough Difficulty following your treatment plan, or difficulty taking medications CALL 911 OR GO TO THE EMERGENCY DEPARTMENT if you experience any of the following: Sudden, severe abdominal pain or nausea/vomiting Severe chest pain, or chest pain that radiates (moves) to your jaw or arm Sudden, severe shortness of breath or difficulty breathing Thank you for allowing us to participate in your care Pending Studies at Discharge: No Stand-Alone Forms: My [facility], Smoking Cessation Medications and DC Order Prescriptions: New nicotine 21 mg/24 hr patch 24 hour 1 patch transdermal DAILY Qty: 28 0RF prednisone 20 mg tablet See Taper PO BID 5 Days Qty: 10 0RF Taper: Taper, Blank 20 mg 2 times daily for 3 Days 20 mg 1 time daily for 3 Days Rx Instructions: Take 20 mg, twice a day, for 3 days followed by: 20 mg, once a day, for 3 days tiotropium bromide [Spiriva with HandiHaler] 18 mcg capsule, w/inhalation device 1 cap inhalation DAILY Qty: 30 0RF Rx Instructions: puncture 1 cap using device; one dose = 2 inhalations azithromycin 500 mg tablet 500 mg PO DAILY 3 Days Qty: 3 0RF Continued cholecalciferol (vitamin D3) 25 mcg (1,000 unit) capsule 25 mcg PO QAM (DME) Aerochamber Plus Z Stat Spacer See Rx Instructions .ROUTE .MEDSUPPLY Qty: 1 0RF Rx Instructions: As directed sildenafil 50 mg tablet 50 mg PO DAILY PRN (Reason: sexual activity) Qty: 30 2RF Rx Instructions: administer 30 minutes to 4 hours before activity budesonide-formoterol [Symbicort] 80-4.5 mcg/actuation HFA aerosol inhaler 1 inh inhalation HS Qty: 10.2 2RF albuterol sulfate 90 mcg/actuation HFA aerosol inhaler 1 puff INHALATION QID PRN (Reason: Shortness Of Breath Or Wheezing) Qty: 8.5 4RF amlodipine 5 mg tablet 5 mg PO HS Qty: 90 3RF aspirin 81 mg tablet,delayed release (DR/EC) 81 mg PO DAILY Qty: 30 2RF pantoprazole 40 mg tablet,delayed release (DR/EC) 40 mg PO QAM Rx Instructions: TAKE ONE TABLET BY MOUTH ONCE DAILY paroxetine HCl 40 mg tablet 40 mg PO QAM lisinopril 40 mg tablet 40 mg PO QAM rosuvastatin 20 mg tablet 20 mg PO QAM hydrochlorothiazide 12.5 mg tablet 12.5 mg PO QAM Discharge Orders: Discharge Order (Routine); Ordered 05/06/24 Ordered By: Marv Stevens/Other Patient Handouts: COPD: Chronic Coughing, COPD: Wheezing and Chest Tightness, COPD: Coping with Fatigue, What Is COPD, COPD Quit Smoking, COPD Controlled Breathing Dc, COPD Meds Admission Data Admit Date/Time: 05/05/24 02:46 Attending Provider: Festus Faith Admit Provider: Taiwo Jay Primary Care Provider: Tom Mcmahon. Other Providers: Taiwo Jay Other Interventions: Discharge Summary Assessment (RN) Last Done: 05/06/24 15:05 Supervising Physician Co-Signing Physician Notes ATTESTATION I also saw the patient and confirmed ramos portions of the history and exam. I agree with the impression and plan in the resident documentation, and as summarized below. This morning, the patient feels much better and desire discharge. He has no complaints. Breathing better. Wants to go home. EXAM VSS - on room air at 96% He is alert and oriented. No distress appreciated. Heart regular rate and rhythm Lungs with prolonged expiratory phase, mild end expiratory wheeze, but good air exchange. DATA Labs WBC 11.23, suspect secondary to steroid Imaging Chest x-ray taken upon admission shows no acute process. Micro Sputum culture collected shows pin point grwoth. IMPRESSION & PLAN Acute respiratory failure with hypoxia COPD exacerbation Nicotine dependence Clinically improved, desires and appropriate for discharge home Prednisone 40 mg daily x3, then 20 mg x 3. Increase Symbicort to BID Add Spiriva Continue Albuterol PRN Complete course of Zithromax Discussed smoking sensation, elects nicotine patch Recommend pulmonary appointment but he declines PCP in 1-2 weeks Additional per resident documentation
[2024-05-06 07:21] LABS: Albumin Level 4.2 gm/dl (3.4-5.0); BUN Creatinine Ratio 22.4 (10-20); Calcium 9.9 mg/dl (8.6-10.3); Creatinine Clr Calc Pharmacy 97.8 ml/min; Est GFR (African American) 107.9 ml/min; Est GFR (Non-African American) 93.1 ml/min; Magnesium 2.1 mg/dl (1.7-2.4); Phosphorus 3.1 mg/dl (2.5-4.9); Potassium 3.8 mmol/L (3.5-5.1)
== END 2024-05-06 15:48 | disposition home or self-care (01) ==
LOC: ED 23:05 → EDINP 23:05 → SUATTDRO 05-05 02:46 → 4W 05-05 05:14